=== PATIENT | male | born 1955 | race Caucasian/White ===

== ENCOUNTER 2019-12-12 16:12 | Outpatient (REF) | payer OTHER, SELFPAY | END 2019-12-12 16:13 | disposition home or self-care (01) | LOC: HO.LAB 16:12 | PROVIDERS: Visit Provider Internal Medicine | DX: Z20.828 Contact with and (suspected) exposure to other viral communicable diseases (principal) | CPT/HCPCS: U0003 ==

== ENCOUNTER 2021-10-30 06:26 | Day surgery (SDC) | payer OTHER, SELFPAY ==
[2021-10-25 09:32] VITALS: BMI 26.6
[2021-10-30 06:37] VITALS: BP 128/54; PULSE 47; RESP 16; TEMP 36.8; O2SAT 96; BMI 25.4
--- NOTE | 2021-10-30 06:58 | PC.NURSE ---
Patient arrived to preop. HR 45-47. Asymptomatic, denies dizziness/lightheadedness. Patient states I'm just hungry . Patient also states he is very active . No EKG or diagnosis in system. Patient states I've been told before that its low . Anesthesia Dr. Mejia notified. No new orders at this time. Okay to proceed with procedure.
--- NOTE | 2021-10-30 07:16 | HO.ANESPROP2 ---
HPI - Anesthesia Eval Consult details Narrative: for colonoscopy [facility] Past Medical History Medical History (Updated 10/25/21 @ 09:31 by Jaz Proctor RN) Elevated cholesterol Family History Family history of problems with anesthesia: No Surgical History Surgical History (Updated 10/25/21 @ 09:31 by Jaz Proctor RN) H/O colonoscopy History of Problems with Anesthesia: No Social History Social History Patient Tobacco Use Status: Never used Tobacco Tobacco use type: Cigarette Use of substances other than those prescribed or required for medical reasons: No Are you DNR?: No Advance Directives: No Advance Directives Information Provided: Yes Meds Allergies Allergy/AdvReac Type Severity Reaction Status Date / Time No Known Allergies Allergy Verified 10/30/21 06:33 Active Medications: Current Medications Sodium Biphosphate/Sodium Phosphate (Sodium Phosphate,[place]-Dibasic 133 Ml Enema) 133 ml HI ONCE PRN PRN Reason: Poor Colonoscopy Prep Results Home Medications Medication Instructions Recorded Confirmed Last Taken Type simvastatin 1 tab PO DAILY 10/25/21 10/25/21 Unknown History Exam Exam Date and Time: October 30, 2021 0716 Height,Weight and Vital Signs: Height 5 ft 8 in Weight 75.75 kg Last Vital Signs Temp 98.2 F 10/30/21 06:37 Pulse 47 L 10/30/21 06:37 Resp 16 10/30/21 06:37 BP 128/54 L 10/30/21 06:37 Pulse Ox 96 10/30/21 06:37 O2 Del Method 10/30/21 06:37 Airway Mallampati Class: I TM Dist: >3cm Neck ROM: Full Loose/Missing/Broken Teeth: No Heart: ok Lungs: ok Assessment and Plan Final Anesthetic Review Family History of Problems with Anesthesia: No History of Problems with Anesthesia: No NPO: Yes ASA Class: I Final Preanesthetic Review: No Changes in Pt Med Stat, Meds/Allgs Chart Reviewed, Consent Obtained/Reviewed and Anes Risks/Benef Reviewed Patient Risk: Low Procedure Risk: Low Anesthetic Plan Anesthetic Plan: MAC: and Agree w/ Assess. and Plan Disposition: Standard PACU
[2021-10-30] MEDS: Lactated Ringers 1,000 ML 100 ML IVCONT (07:24)
--- NOTE | 2021-10-30 08:20 | PM.OP ---
Brief Operative Note Date of Service: 10/30/21 Pre-op diagnosis: Screening Post-op diagnosis: other (Diverticulosis) Procedure: Colonoscopy to the cecum and TI Surgeon: Michael Richard Anesthesia: MAC Was an Sheet Pile Hammer Operator used for this Procedure?: No Estimated blood loss (mL): 0 Pathology: none sent Condition: stable Disposition: PACU
[2021-10-30 08:22] VITALS: BP 96/44; PULSE 58; RESP 18; TEMP 36.2; O2SAT 96
--- NOTE | 2021-10-30 08:24 | HO.ANESPROP2 ---
HPI - Anesthesia Eval Consult details Narrative: EGD, colonoscopy [facility] Past Medical History Medical History (Updated 10/25/21 @ 09:31 by Jaz Proctor RN) Elevated cholesterol Family History Family history of problems with anesthesia: No Surgical History Surgical History (Updated 10/25/21 @ 09:31 by Jaz Proctor RN) H/O colonoscopy History of Problems with Anesthesia: No Social History Social History Patient Tobacco Use Status: Never used Tobacco Tobacco use type: Cigarette Use of substances other than those prescribed or required for medical reasons: No Are you DNR?: No Advance Directives: No Advance Directives Information Provided: Yes Meds Allergies Allergy/AdvReac Type Severity Reaction Status Date / Time No Known Allergies Allergy Verified 10/30/21 06:33 Active Medications: Current Medications Acetaminophen (Acetaminophen 325 Mg Tablet) 650 mg PO ONCE PRN PRN Reason: Pain, Mild (Pain Scale 1-3) Lactated Ringer's (Lr) 1,000 mls @ 100 mls/hr IVCONT .Q10H NICOLE Last Admin: 10/30/21 07:24 Dose: 100 mls/hr Ondansetron HCl (Ondansetron Hcl 4 Mg/2 Ml Vial) 4 mg IVPUSH ONCE PRN PRN Reason: Nausea and Vomiting Sodium Biphosphate/Sodium Phosphate (Sodium Phosphate,[place]-Dibasic 133 Ml Enema) 133 ml DE ONCE PRN PRN Reason: Poor Colonoscopy Prep Results Home Medications Medication Instructions Recorded Confirmed Last Taken Type simvastatin 1 tab PO DAILY 10/25/21 10/25/21 Unknown History Exam Exam Date and Time: October 30, 2021 0824 Height,Weight and Vital Signs: Height 5 ft 8 in Weight 75.75 kg Last Vital Signs Temp 98.2 F 10/30/21 06:37 Pulse 47 L 10/30/21 06:37 Resp 16 10/30/21 06:37 BP 128/54 L 10/30/21 06:37 Pulse Ox 96 10/30/21 06:37 O2 Del Method 10/30/21 06:37 Assessment and Plan Final Anesthetic Review Family History of Problems with Anesthesia: No History of Problems with Anesthesia: No
[2021-10-30 08:37] VITALS: BP 105/68; PULSE 52; RESP 18; TEMP 36.2; O2SAT 98
[2021-10-30 08:52] VITALS: BP 110/70; PULSE 53; RESP 18; TEMP 36.2; O2SAT 98
--- NOTE | 2021-10-30 09:58 | OP_ITS ---
SURGEON: Michael Richard MD INDICATIONS: The patient presents for evaluation of colorectal cancer screening. Full consent has been obtained from him for this, including risks of bleeding and perforation. PREOPERATIVE DIAGNOSIS: Colorectal cancer screening. POSTOPERATIVE DIAGNOSIS: PROCEDURE PERFORMED: Colonoscopy to cecum and terminal ileum. ESTIMATED BLOOD LOSS: COMPLICATIONS: ANESTHESIA: Monitored anesthesia care. ASSISTANTS: SPECIMENS: POSTOPERATIVE DIAGNOSES: Colorectal cancer screening, sigmoid diverticulosis, and internal hemorrhoids. DESCRIPTION OF PROCEDURE: The patient was placed in the left lateral decubitus position. The digital rectal exam revealed no abnormalities. The Olympus video pediatric colonoscope was entered into the rectum and advanced easily to the cecum. Once in the cecum I did identify a normal-appearing cecal pouch with appendiceal orifice and a normal-appearing ileocecal valve. The terminal ileum was cannulated and appeared normal the scope was withdrawn back in the colon. The entire cecum and ileocecal valve appeared normal. The scope was then slowly withdrawn assessing all mucosal surfaces carefully. Preparation was excellent. I did not visualize any sign of polyps, colitis, nor angiodysplasia. There was a mild amount of sigmoid diverticulosis. In the rectum, the scope was retroflexed visualizing internal hemorrhoids but no other pathology. The rectal mucosa appeared normal. The scope was straightened and withdrawn from the patient. He tolerated the procedure well and was returned to the recovery area in stable condition. IMPRESSION: 1. Diverticulosis. 2. Internal hemorrhoids. PLAN: Given the negative exam and no family history of colon cancer, I would recommend a followup colonoscopy in 10 years for further screening. He will otherwise see me on a p.r.n. basis. MD HOSEA Fernandez/DARWIN / [id number]
== END 2021-10-30 09:23 | disposition home or self-care (01) ==
PROVIDERS: PCP Internal Medicine; Visit Provider Internal Medicine
PROC: 0DJD8ZZ Inspection of Lower Intestinal Tract, Via Natural or Artificial Opening Endoscopic (ICD-10-PCS; CPT 45378; principal; 2021-10-30 07:30)
DX: Z12.11 Encounter for screening for malignant neoplasm of colon (principal); K57.30 Diverticulosis of large intestine without perforation or abscess without bleeding; K64.8 Other hemorrhoids; E78.5 Hyperlipidemia, unspecified; Z79.899 Other long term (current) drug therapy
CPT/HCPCS: 45378